=== PATIENT | male | born 1980 | race Caucasian/White ===

== ENCOUNTER 2017-08-07 22:27 | Emergency (ER) | payer MEDICAID ==
[~2017-08-07] VITALS: Ht 182.9 cm; Wt 85.7 kg
--- NOTE | 2017-08-08 22:42 | EKG ---
[facility] [address] [place] [address] Signed Sinus tachycardia Otherwise normal ECG No previous ECGs available Confirmed by CHLOE NOWAK MD ([id number] on 08/08/2017 10:42:09 PM Electronically Signed By: CHLOE NOWAK MD 08/08/17 2242 PATIENT NAME: JENNIFER JENKINS SANDEEP Electrocardiogram DATE OF : 76 PHYSICIAN: CHLOE NOWAK MD REPORT #: [id number] REPORT IS CONFIDENTIAL AND NOT TO BE RELEASED WITHOUT AUTHORIZATION
== END 2017-08-08 00:39 | disposition home or self-care (01) ==
LOC: ED 22:27
DX: F41.9 Anxiety disorder, unspecified (principal); F17.200 Nicotine dependence, unspecified, uncomplicated
CPT/HCPCS: 80053; 85025; 93005; 93010; 96374; 99282; G0480; J2060; J7030

== ENCOUNTER 2017-08-12 23:30 | Emergency (ER) | payer MEDICAID ==
[~2017-08-12] VITALS: Ht 182.9 cm; Wt 85.7 kg
[2017-08-13] MEDS ORDERED: NORCO 5-325 TA1 EACH PO (00:30)
== END 2017-08-13 00:50 | disposition home or self-care (01) ==
LOC: ED 23:30
DX: S42.032A Displaced fracture of lateral end of left clavicle, initial encounter for closed fracture (principal); F17.200 Nicotine dependence, unspecified, uncomplicated; W01.10XA Fall on same level from slipping, tripping and stumbling with subsequent striking against unspecified object, initial encounter
CPT/HCPCS: 73030; 99283